=== PATIENT | female | born 1970 | race Caucasian/White ===

== ENCOUNTER 2019-08-11 13:45 | Outpatient (CLI) | payer OTHER, SELFPAY ==
--- NOTE | 2019-08-11 14:02 | XR_ITS ---
WS: [id number] XR knee LT 3V* [id number] REASON FOR EXAM: pain FINDINGS: The left knee shows internal fixation through the tibial plateau within side plate and mult iple screws through the tibia. A plate is also seen through the external medial aspects of the tibia. The fractures appear to be healed and there is good positioning of the tibial plateau seen. XR/XR knee LT 3V* [id number] IMPRESSION: Healed fracture through the tibia tibia plateau.
== END 2019-08-11 13:46 | disposition home or self-care (01) ==
LOC: RAD 13:56
PROVIDERS: Visit Provider Orthopaedic Surgery
DX: S82.142D Displaced bicondylar fracture of left tibia, subsequent encounter for closed fracture with routine healing (principal); X58.XXXD Exposure to other specified factors, subsequent encounter; M25.562 Pain in left knee
CPT/HCPCS: 73562

== ENCOUNTER → 2019-08-29 12:54 | Outpatient (BNVA) | payer OTHER, SELFPAY | PROVIDERS: Visit Provider Nurse Practitioner Family | DX: R05 Cough (principal); J45.909 Unspecified asthma, uncomplicated | CPT/HCPCS: 87400; 87635 ==